=== PATIENT | female | born 2000 | race African-American/Black ===

== ENCOUNTER 2024-07-02 15:03 | Emergency (ER) | payer MEDICAID ==
[~2024-07-02] VITALS: Ht 165.1 cm; Wt 56.4 kg
[2024-07-02 15:09] VITALS: BP 123/57; PULSE 77; RESP 18; TEMP 98; O2SAT 99
[2024-07-02 18:04] LABS: APPEARANCE,URINE HAZY (CLEAR); BILIRUBIN,URINE NEGATIVE (NEGATIVE); COLOR,URINE DARK YELLOW (YELLOW); GLUCOSE, URINE (UA) NEGATIVE (NEGATIVE); KETONES,URINE NEGATIVE (NEGATIVE); LEUKOCYTE ESTERASE ,URINE LARGE (NEGATIVE); NITRATE,URINE NEGATIVE (NEGATIVE); OCCULT BLOOD,URINE MODERATE (NEGATIVE); PROTEIN,URINE 30-70 mg/dL (NEGATIVE); SPECIFIC GRAVITIY, URINE 1.021 (1.003-1.030); UROBILINOGEN,URINE <=1.0 mg/dL (<=1.0)
[2024-07-02 18:10] LABS: BACTERIA,URINE Many /HPF (None Seen); SQUAMOUS EPITHELIAL CELL,UR Few /LPF (None Seen); WBC,URINE 51-100 /HPF (0-5)
[2024-07-02] MEDS: CEPHALEXIN MONOHYDRATE 500 MG CAPSULE PO ONE (19:05)
[2024-07-02] MEDS ORDERED: PHEN-846 PO (19:13)
[2024-07-02] MEDS: PHENAZOPYRIDINE HCL 100 MG TABLET PO ONE (19:13)
[2024-07-02] MEDS ORDERED: CEPH-558 PO (19:13)
== END 2024-07-02 19:34 | disposition home or self-care (01) ==
LOC: EMS 15:03
DX: N39.0 Urinary tract infection, site not specified (principal)
CPT/HCPCS: 81001; 84703; 87077; 87086; 87186; 99283

== ENCOUNTER 2024-07-12 14:09 | Emergency (ER) | payer MEDICAID ==
[~2024-07-12] VITALS: Ht 165.1 cm; Wt 56.8 kg
[~2024-07-12 14:09] MED LIST: CEPH-558 PO; PHEN-846 PO
[2024-07-12 14:15] VITALS: BP 127/58; PULSE 88; RESP 16; TEMP 98; O2SAT 100
[2024-07-12 15:29] LABS: APPEARANCE,URINE HAZY (CLEAR); BILIRUBIN,URINE NEGATIVE (NEGATIVE); COLOR,URINE LIGHT YELLOW (YELLOW); GLUCOSE, URINE (UA) NEGATIVE (NEGATIVE); KETONES,URINE NEGATIVE (NEGATIVE); LEUKOCYTE ESTERASE ,URINE LARGE (NEGATIVE); NITRATE,URINE NEGATIVE (NEGATIVE); OCCULT BLOOD,URINE SMALL (NEGATIVE); PH,URINE 5.5 (5.0-8.0); PROTEIN,URINE 30-70 mg/dL (NEGATIVE); SPECIFIC GRAVITIY, URINE 1.018 (1.003-1.030); UROBILINOGEN,URINE <=1.0 mg/dL (<=1.0)
[2024-07-12 15:38] LABS: BACTERIA,URINE Few /HPF (None Seen); SQUAMOUS EPITHELIAL CELL,UR Moderate /LPF (None Seen); WBC,URINE 51-100 /HPF (0-5)
[2024-07-12] MEDS ORDERED: MICO45CR76 VG (15:58)
[2024-07-12] MEDS ORDERED: CEPH-558 PO (15:58)
[2024-07-12] MEDS ORDERED: PHEN-674 PO (15:58)
== END 2024-07-12 16:19 | disposition home or self-care (01) ==
LOC: EMS 14:13
DX: N39.0 Urinary tract infection, site not specified (principal); N76.0 Acute vaginitis
CPT/HCPCS: 81001; 87077; 87086; 87186; 99284; Z7502